=== PATIENT | male | born 1985 | race Caucasian/White ===

== ENCOUNTER 2019-05-27 18:02 | Emergency (ER) | payer SELFPAY ==
[~2019-05-27] VITALS: Ht 182.9 cm; Wt 123.2 kg
[2019-05-27 18:10] VITALS: Ht 182.9 cm; Wt 123.2 kg
[2019-05-27] MEDS ORDERED: KETOROLAC 30 MG INJ IM STA (20:32)
[2019-05-27] MEDS ORDERED: IBUP-1542 PO (20:34)
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
[2019-05-27 21:15] VITALS: BP 132/76; PULSE 72; RESP 17
== END 2019-05-27 21:15 | disposition home or self-care (01) ==
LOC: FTE 18:02
DX: S16.1XXA Strain of muscle, fascia and tendon at neck level, initial encounter (principal); S39.012A Strain of muscle, fascia and tendon of lower back, initial encounter; V43.52XA Car driver injured in collision with other type car in traffic accident, initial encounter
CPT/HCPCS: 96372; J1885